=== PATIENT | male | born 1955 | race Caucasian/White ===

== ENCOUNTER → 2017-04-25 | Outpatient (CLI) | payer MEDICARE, OTHER ==
--- NOTE | 2017-04-25 12:47 | RADIOLOGY REPORT (SQ) ---
EXAM DESCRIPTION: U/S RETROPERITON (RENAL/AORTA) COMPLETED DATE/TIME: 04/25/2017 10:57 am REASON FOR STUDY: RENAL CYST (N28.1) N28.1 CYST OF KIDNEY, ACQUIRED COMPARISON: None. TECHNIQUE: Dynamic and static grayscale images acquired of the kidneys and bladder and recorded on P ACS. Additional selected color Doppler and spectral images recorded. LIMITATIONS: None. FINDINGS: RIGHT KIDNEY: Normal size, 11.6 cm. Normal echogenicity. No solid or suspicious masses. No hydronephrosis. Multiple shadowing echogenic foci. The largest is in the renal pelvis that measure s 1.4 cm. LEFT KIDNEY: Normal size, 11.9 cm. Normal echogenicity. No solid or suspicious masses. No hydronephr osis. No calcifications. BLADDER: Morphologically normal. Ureteral jets were seen. OTHER FINDINGS: No other significant finding. IMPRESSION: Right nephrolithiasis as described TECHNICAL DOCUMENTATION: JOB ID: [id number] [employer]- All Rights Reserved
== END ==
LOC: RAD 09:45
PROVIDERS: ATTEND Urology
DX: N28.1 Cyst of kidney, acquired (principal); N20.0 Calculus of kidney
CPT/HCPCS: 76770

== ENCOUNTER → 2019-07-03 | Outpatient (CLI) | payer OTHER, MEDICARE ==
--- NOTE | 2019-07-03 12:50 | RADIOLOGY REPORT (SQ) ---
EXAM DESCRIPTION: MRI RT UPPER JOINT WITHOUT COMPLETED DATE/TIME: 07/03/2019 11:11 am REASON FOR STUDY: M25.511 PAIN RIGHT SHOULDER M25.511 PAIN IN RIGHT SHOULDER COMPARISON: 2008 TECHNIQUE: Right shoulder images acquired and stored on PACS. Multiplanar imaging to include fat sen sitive sequences such as T1, water sensitive sequences such as FST2/STIR, cartilage sensitive sequenc es such as FSPD/gradient-echo sequences. LIMITATIONS: None. FINDINGS: BONE MARROW AND CORTEX: No worrisome bone lesions or marrow replacement. No occult fractur es. JOINT OR BURSAL EFFUSION: No significant joint or bursal fluid. No suggestion of loose bodies. GLENO-HUMERAL ARTICULATION: Normal articulation. No subluxation. No cystic change. No osteophytes or cartilage loss. ACROMION AND AC JOINT: Mild predominantly dorsal degenerative scratch at mild degenerative hypertro phy with mild fluid in the joint. Subacromial space looks maintained. ROTATOR CUFF AND INTERVAL: No significant tear or signal alteration. No cuff muscle atrophy. No rotator interval tear. No rotator interval thickening to suggest adhesive capsulitis. LABRUM AND BICEPS LABRAL COMPLEX: Previous superior labral repair. Biceps anchor and superior labr um intact. Biceps tendon normal. REMAINDER OF LABRUM AND IGHL : Intact as assessed. PERIARTICULAR AND ADJACENT SOFT TISSUES: No masses or abnormal nodes. OTHER: No other significant finding. IMPRESSION: 1. Postoperative changes, previous superior labral repair. No recurrent tear. 2. Cuff intact. 3. Chronic AC arthropathy. TECHNICAL DOCUMENTATION: JOB ID: [id number] [employer]- All Rights Reserved Reading location - IP/workstation name: [email or web address]
== END ==
LOC: RAD 09:39
PROVIDERS: ATTEND Physician Assistant
DX: M25.511 Pain in right shoulder (principal)